=== PATIENT | female | born 1960 | race Caucasian/White ===

== ENCOUNTER 2022-07-04 07:50 | Day surgery (SDC) | payer OTHER, SELFPAY ==
[2022-01-21 12:57] VITALS: BMI 24.6
[2022-07-02 13:56] VITALS: BMI 23.8
[2022-07-04 08:15] VITALS: BP 141/76; PULSE 105; RESP 18; TEMP 36.6; O2SAT 97
[2022-07-04] MEDS: sodium chloride 0.9% 1,000 ML 30 ML IV (08:28)
[2022-07-04 08:29] LABS: Glucose Point of Care 135 mg/dL (70-110)
[2022-07-04] MEDS: ondansetron 2 mg/ML SDV 2 mL 4 MG IVP (08:31)
--- NOTE | 2022-07-04 08:41 | P.HP_ITS ---
Same Day Surgery H&P Indication for Procedure/HPI DATE OF PROCEDURE: July 04, 2022 CHIEF COMPLAINT/INDICATIONFOR SURGICAL PROCEDURE: History of occult blood in stool PREOP DIAGNOSIS: Occult blood in stool PLANNED PROCEDURE: Operation Date: 07/04/22 09:00 Proposed Procedures p Colonoscopy 53793 R19.5(Not Applicable) - Calvin Lombardi MD 07/16/2021 Ms. Sanders is a pleasant 60 years old female patient, referred to my practice with history of occult blood in stool.? Patient reports that she never had a colonoscopy before and denies history of colon cancer or nonintentional weight loss. Interim history 07/04/2022 Patient was supposed to have a colonoscopy about a year ago but got postponed couple of times, he comes today for colonoscopy to rule out potential colon cancer. ROS All systems have been reviewed negative except as for the above or per problem list. Medications/Allergies* Home Medications Medication Instructions Recorded Confirmed Type aspirin 81 mg tablet,delayed 81 mg PO DAILY 07/16/21 07/02/22 History release (Adult Aspirin Regimen) atorvastatin 80 mg tablet 80 mg PO DAILY 07/16/21 07/02/22 History insulin detemir U-100 100 unit/mL 92 unit SUBCUT BEDTIME 07/16/21 07/04/22 History (3 mL) subcutaneous pen (Levemir FlexTouch U-100 Insulin) lisinopril 20 mg tablet 20 mg PO DAILY 07/16/21 07/02/22 History metformin 500 mg tablet 1,000 mg PO BID 07/16/21 07/02/22 History dulaglutide 1.5 mg/0.5 mL 1.5 mg SUBCUT .WEEKLY 05/07/22 07/03/22 History subcutaneous pen injector (Trulicity) Allergies/Adverse Reactions Allergy/AdvReac Type Severity Reaction Status Date / Time No Known Allergies Allergy Verified 07/04/22 08:42 Current Medications: Generic Name Dose Route Start Last Admin Trade Name Freq PRN Reason Stop Dose Admin Sodium Chloride 1,000 mls @ 30 mls/hr 07/04/22 08:00 07/04/22 08:28 Sodium Chloride 0.9% IV 07/05/22 07:59 30 mls/hr .Q24H LIANNA Administration Pertinent History/Comorbid Conditions* Family History (Updated 07/16/21 @ 09:34 by Lu Galvin MA) Diabetes Cancer Social History Smoking and tobacco status: former smoker Pertinent Exam Findings alert, oriented x 3, clear to auscultation bilaterally, regular rate & rhythm and procedure specific exam findings (Abdominal exam nontender nondistended soft) Recommendations Surgery/Procedure today (Screening colonoscopy) Other Plans: Plan of care; After thorough history and physical examination and reviewing the chart, plan to perform screening colonoscopy. I discussed with the patient in details the risks,benefits,alternatives and indications.The risk of aspiration, bleeding, soft tissue injury, perforation of the colon ,missed lesions and other potential concomitant complications were explained to the patient in details,also the potential need for [place]/Laparotomy to repair any related complications including but not limited to colectomy and or Closotomy.The patient understood this well and did agree to proceed. Rationale was carefully and clearly discussed with the patient.Appropriate informed consent have been reviewed and signed All questions have been answered and all concerns have been addressed to patient's satisfaction. Verbal and written Instructions were given to the patient for colonoscopy prep Coding Level of Care Code Acute [employer] Sales Manager for Brea Gibson
[2022-07-04 10:38] VITALS: BP 102/60; PULSE 98; RESP 16; TEMP 36.1; O2SAT 98
[2022-07-04 10:50] VITALS: BP 122/73; PULSE 99; RESP 18; O2SAT 100
--- NOTE | 2022-07-04 13:31 | ANES.PREANE2 ---
Pre-Anesthetic Assessment Height/Weight: Height 1.65 m Weight 64.864 kg Temp Pulse Resp BP Pulse Ox O2 Del Method O2 Flow Rate 97 F L 99 18 122/73 100 4 07/04/22 10:38 07/04/22 10:50 07/04/22 10:50 07/04/22 10:50 07/04/22 10:50 07/04/22 10:50 07/04/22 10:38 Preop Diagnosis: Occult blood in stool Operation Date: 07/04/22 09:00 Proposed Procedures p Colonoscopy 39502 R19.5(Not Applicable) - Calvin Lombardi MD Familial anesthetic complications: none Was Beta Vanna taken within 24 hours: N/A Was Clonidine taken within 24 hours: N/A Last intake: Intake Last Liquid Date 07/03/22 Last Liquid Time 23:30 Last Solid Date 07/02/22 Last Solid Time 22:00 Social No alcohol and No tobacco Exam alert, oriented x 3, clear to auscultation bilaterally and regular rate & rhythm Airway Submandibular: within normal limits Cervical ROM: within normal limits Mallampati: Class II CV/HEM Hypertension Metabolic Diabetes Mellitus and Hyperlipidemia Anesthetic Plan ASA status: 2 Anesthesia: MAC Medications/Allergies Home Medications Medication Instructions Recorded Confirmed Last Taken Type aspirin 81 mg tablet,delayed 81 mg PO DAILY 07/16/21 07/02/22 07/03/22 History release (Adult Aspirin Regimen) atorvastatin 80 mg tablet 80 mg PO DAILY 07/16/21 07/02/22 07/03/22 History insulin detemir U-100 100 unit/mL 92 unit SUBCUT BEDTIME 07/16/21 07/04/22 07/03/22 History (3 mL) subcutaneous pen (Levemir 25 FlexTouch U-100 Insulin) lisinopril 20 mg tablet 20 mg PO DAILY 07/16/21 07/02/22 07/03/22 History metformin 500 mg tablet 1,000 mg PO BID 07/16/21 07/02/22 07/03/22 History lactulose 10 gram/15 mL oral 15 ml PO BID 7 days #210 mL 01/23/22 07/02/22 07/03/22 Rx solution dulaglutide 1.5 mg/0.5 mL 1.5 mg SUBCUT .WEEKLY 05/07/22 07/03/22 07/03/22 History subcutaneous pen injector (Trulicity) peg 3350-electrolytes 236 240 ml PO Q10M #4,000 mL 05/08/22 07/02/22 07/03/22 Rx gram-22.74 gram-6.74 gram-5.86 gram solution (Golytely) Allergies Allergy/AdvReac Type Severity Reaction Status Date / Time No Known Allergies Allergy Verified 07/04/22 08:42 FOR[facility], [facility] Anesthesia Family History Other Cancer Diabetes Social History Smoking and tobacco status: former smoker Data Anesthesia Cardiac Studies: No Data to Display
--- NOTE | 2022-07-04 13:31 | ANE.PACU2 ---
Inpatient post-anesthesia follow up: Airway intact: Yes Vital signs: Temperature 97 F Pulse Rate 99 Respiratory Rate 18 Blood Pressure 122/73 Pulse Oximetry 100 Oxygen Delivery Me thod Room Air Oxygen Flow Rate 4 Fraction of Inspir ed Oxygen Hydration adequate: Yes Nausea and vomiting: No Pain level: 1 Mental status: Baseline
== END 2022-07-04 11:07 | disposition home or self-care (01) ==
PROVIDERS: PCP Family Medicine; Visit Provider Surgery
PROC: 0DJD8ZZ Inspection of Lower Intestinal Tract, Via Natural or Artificial Opening Endoscopic (ICD-10-PCS; CPT 45378; principal; 2022-07-04 09:00)
DX: R19.5 Other fecal abnormalities (principal); I10 Essential (primary) hypertension; E11.9 Type 2 diabetes mellitus without complications; E78.5 Hyperlipidemia, unspecified; Z79.82 Long term (current) use of aspirin; Z79.4 Long term (current) use of insulin; F17.200 Nicotine dependence, unspecified, uncomplicated
CPT/HCPCS: 36416; 45378; 82962; J2405; J2704; J7030